=== PATIENT | female | born 1960 | race African-American/Black ===

== ENCOUNTER 2022-01-01 14:55 | Emergency (ER) | payer SELFPAY ==
[~2022-01-01] VITALS: Ht 167.6 cm; Wt 88.0 kg
[2022-01-01] MEDS ORDERED: ALBUTEROL (0.083%) 2.5MG/3ML NEB HHN STA (16:09)
[2022-01-01] MEDS ORDERED: KETOROLAC 30MG/ML VIAL IV STA (16:09)
[2022-01-01] MEDS ORDERED: IPRATROPIUM BROMIDE (0.02%) 0.5MG/2.5ML NEB HHN STA (16:09)
[2022-01-01] MEDS ORDERED: ONDANSETRON HCL 4MG/2ML INJ IV STA (16:09)
[2022-01-01] MEDS ORDERED: METHYLPREDNISOLONE SOD SUCC 125 MG/2 ML VIAL IV STA (16:09)
[2022-01-01] MEDS ORDERED: ACETAMINOPHEN WITH CODEINE 120-12MG/5ML UDC PO ONE (16:15)
[2022-01-01] MEDS ORDERED: SODIUM CHLORIDE 0.9% 1,000 ML IV ONE (16:15)
[2022-01-01 17:18] LABS: BASOPHILS % 0.5 % (0.0-2.0); EOSINOPHILS % 0.9 % (0.0-5.0); HEMOGLOBIN. 13.3 g/dL (12.0-16.0); LYMPHOCYTES % 12.9 % (20.0-50.0); MEAN CORPUSCULAR HEMOGLOBIN 28.6 pg (28.0-32.0); MEAN CORPUSCULAR VOLUME 86.4 fL (81.0-99.0); MEAN PLATELET VOLUME 8.8 fl (7.4-10.4); MONOCYTES % 7.9 % (2.0-8.0); NEUTROPHILS % 77.8 % (40.0-76.0); PLATELET 207 x1000/uL (130-400); RED BLOOD CELL COUNT 4.63 mill/uL (4.2-5.4); RED CELL DISTRIBUTION WIDTH 15.8 % (11.6-14.6)
[2022-01-01 17:22] LABS: CHLORIDE 106 mEq/L (98-107)
[2022-01-01] MEDS ORDERED: AZITHROMYCIN 500 MG TABLET PO NR (18:30)
[2022-01-01] MEDS ORDERED: CEFTRIAXONE 1 G PREMIX 50 ML IV NR (18:30)
[2022-01-01] MEDS ORDERED: LEVO750T46 MT (18:37)
[2022-01-01] MEDS ORDERED: ALBU6.7H9 INH (18:39)
[2022-01-01] MEDS ORDERED: MED4 MT (18:39)
[2022-01-01] MEDS ORDERED: IPRATROPIUM BROMIDE (0.02%) 0.5MG/2.5ML NEB HHN NR (21:00)
[2022-01-01] MEDS ORDERED: ALBUTEROL (0.083%) 2.5MG/3ML NEB HHN NR (21:00)
[2022-01-01 21:50] VITALS: BP 135/74
== END 2022-01-01 21:30 | disposition home or self-care (01) ==
LOC: ER 15:08
DX: J44.1 Chronic obstructive pulmonary disease with (acute) exacerbation (principal); F12.10 Cannabis abuse, uncomplicated; I10 Essential (primary) hypertension; J45.909 Unspecified asthma, uncomplicated; Z20.822 Contact with and (suspected) exposure to COVID-19
CPT/HCPCS: 36415; 71045; 80053; 85025; 87426; 94640; 96361; 96365; 96375; 99285; C9803; J0696; J1885; J2405; J2930; J7030; Z7610